=== PATIENT | female | born 1970 | race Caucasian/White ===

== ENCOUNTER 2016-02-20 17:40 | Emergency (ER) | payer OTHER | END 2016-02-20 18:26 | disposition E | LOC: ER 17:40 | DX: I46.9 Cardiac arrest, cause unspecified (principal); J45.909 Unspecified asthma, uncomplicated; J44.9 Chronic obstructive pulmonary disease, unspecified; I50.9 Heart failure, unspecified; Z87.891 Personal history of nicotine dependence; Z90.710 Acquired absence of both cervix and uterus; Z90.49 Acquired absence of other specified parts of digestive tract; Z98.890 Other specified postprocedural states | CPT/HCPCS: 36415; 36556; 51702; 92950; 96374; G0480 ==